=== PATIENT | male | born 1960 | race Caucasian/White ===

== ENCOUNTER → 2019-09-18 | Outpatient (CLI) | payer OTHER | LOC: LAB SHORT 17:24 → LAB EV 17:24 | DX: R82.90 Unspecified abnormal findings in urine (principal) | CPT/HCPCS: 87086 ==

== ENCOUNTER 2019-11-28 12:37 | Day surgery (SDC) | payer OTHER ==
[~2019-11-28] VITALS: Ht 167.6 cm; Wt 83.3 kg
[2019-11-28] MEDS ORDERED: LOSA25 (13:40)
== END 2019-11-28 14:45 | disposition home or self-care (01) ==
LOC: ORSCSDS 12:37
PROVIDERS: Internal Medicine Gastroenterology
PROC: 0DBP8ZX Excision of Rectum, Via Natural or Artificial Opening Endoscopic, Diagnostic (ICD-10-PCS; principal; 2019-11-28 14:45)
PROC: 0DBK8ZX Excision of Ascending Colon, Via Natural or Artificial Opening Endoscopic, Diagnostic (ICD-10-PCS; principal; 2019-11-28 14:45)
DX: R10.32 Left lower quadrant pain (principal); K51.90 Ulcerative colitis, unspecified, without complications; K62.1 Rectal polyp; K64.8 Other hemorrhoids; R19.7 Diarrhea, unspecified; I10 Essential (primary) hypertension; K21.9 Gastro-esophageal reflux disease without esophagitis; G47.33 Obstructive sleep apnea (adult) (pediatric); Z79.899 Other long term (current) drug therapy
CPT/HCPCS: 88305; J2704

== ENCOUNTER → 2020-04-08 | Outpatient (CLI) | payer OTHER ==
[~2020-04-08] MED LIST: LOSA25
[2020-04-11 05:10] LABS: CHLAMYDIA TRACHOMATIS, NAA Negative (Negative); NEISSERIA GONORRHOEAE, NAA Negative (Negative)
== END | disposition home or self-care (01) ==
LOC: LAB 15:00 → LAB SHORT 15:00
PROVIDERS: Physician Assistant
DX: Z11.3 Encounter for screening for infections with a predominantly sexual mode of transmission (principal)
CPT/HCPCS: 87491; 87591

== ENCOUNTER 2020-09-17 07:37 | Day surgery (SDC) | payer OTHER ==
--- NOTE | 2020-09-17 09:03 | NUR ---
PT TO AND FROM RADIOLOGY WITH 2 RN ESCORT. PT COMPLETED CTA. PT TOLERATED WELL. ALERT AND ORIENTED. DENIES CP, SOB. ON RETURN TO STEP, PT PROVIDED WITH WATER AND COFFEE. DENIES ADDITIONAL NEEDS. VSS.
--- NOTE | 2020-09-17 09:18 | NUR ---
PT COMPLETES COFFEE AND WATER. STS, " I FEEL GREAT". IV REMOVED. GAUZE AND COBAN IN PLACE. PT DC HOME. AMBULATES INDEPENDENTLY WITH STEADY GAIT.
== END 2020-09-17 22:48 | disposition home or self-care (01) ==
LOC: CT 07:37 → ORD 07:37 → CT 09:00 → ORD 22:48
DX: I25.10 Atherosclerotic heart disease of native coronary artery without angina pectoris (principal); R91.1 Solitary pulmonary nodule; K76.0 Fatty (change of) liver, not elsewhere classified; E78.5 Hyperlipidemia, unspecified; I10 Essential (primary) hypertension; N52.9 Male erectile dysfunction, unspecified; K21.9 Gastro-esophageal reflux disease without esophagitis; G47.33 Obstructive sleep apnea (adult) (pediatric); E66.9 Obesity, unspecified; Z68.33 Body mass index [BMI] 33.0-33.9, adult; Z87.891 Personal history of nicotine dependence; Z88.8 Allergy status to other drugs, medicaments and biological substances; Z79.899 Other long term (current) drug therapy
CPT/HCPCS: 75574; Q9967